=== PATIENT | female | born 1985 | race Caucasian/White ===

== ENCOUNTER 2019-12-28 14:30 | Emergency (ER) | payer MEDICAID ==
[2019-12-28] MEDS ORDERED: Cephalexin 500 MG Cap PO ONE (17:16)
--- NOTE | 2019-12-28 17:16 | EDM.PDOC ---
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 She states that a few days ago she shaved. Noticed a painful area of swelling yesterday. Since then it has gotten slightly larger. She denies any drainage from the area. Denies any fever, chills, nausea, or vomiting. - Related Data Allergies Allergy/AdvReac Type Severity Reaction Status Date / Time No Known Allergies Allergy Verified 12/28/19 17:19 Home Meds: Home Meds cephALEXin [Keflex] 500 mg PO Q6H #20 cap 12/28/19 [Rx] ED ROS GENERAL - Review of Systems Review Of Systems: Comprehensive ROS is negative, except as noted in HPI. ED EXAM, SKIN/RASH Exam: See Below Exam Limited By: No Limitations General Appearance: Alert, WD/WN, No Apparent Distress Respiratory/Chest: No Respiratory Distress, Lungs Clear, Normal Breath Sounds, No Accessory Muscle Use, Chest Non-Tender Cardiovascular: Normal Peripheral Pulses, Regular Rate, Rhythm, No Edema, No Gallop, No JVD, No Murmur, No Rub (Female) Exam: Other (1.5 cm area of erythema and induration to the left posterior labium majora. Area is firm and does not appear to be fluid-filled.) Neurological: Alert, Oriented, CN II-XII Intact, Normal Cognition, Normal Gait, Normal Reflexes, No Motor/Sensory Deficits Psychiatric: Normal Affect, Normal Mood Course - Vital Signs Last Recorded V/S: Last Vital Signs Temp 97.7 F 12/28/19 16:00 Pulse 100 12/28/19 16:00 Resp 16 12/28/19 16:00 BP 137/97 H 12/28/19 16:00 Pulse Ox 99 12/28/19 16:00 - Orders/Labs/Meds Meds: Medications Discontinued Medications Generic Name Dose Route Start Last Admin Trade Name Freq PRN Reason Stop Dose Admin Cephalexin 500 mg 12/28/19 17:16 12/28/19 17:34 Keflex PO 12/28/19 17:17 500 mg ONETIME ONE Administration - Re-Assessments/Exams Free Text/Narrative Re-Assessment/Exam: on exam, patient has a 1.5 cm area of erythema and induration to her left labia majora. Discussed with her that this is likely result of an ingrown hair as result of her shaving. Does not seem to be fluid-filled, therefore I&D would not be appropriate. We will start her on Keflex. Advised her that if it should worsen as opposed to improve, she should be reevaluated. Discharge instructions as documented. Departure - Departure Time of Disposition: 17:13 Disposition: Home, Self-Care 01 Condition: Good Clinical Impression: Ingrown hair - Discharge Information *PRESCRIPTION DRUG MONITORING PROGRAM REVIEWED*: No *COPY OF PRESCRIPTION DRUG MONITORING REPORT IN PATIENT BRYON: No Prescriptions: cephALEXin [Keflex] 500 mg PO Q6H #20 cap Instructions: Ingrown Hair Referrals: PCP,None [Primary Care Provider] - Forms: ED Department Discharge Additional Instructions: You were seen in the emergency department today for a painful, swollen area to your left labia. As we discussed, this is likely an ingrown hair. Started on Keflex which is an antibiotic. Take this medication as prescribed. You may use [id number] Tylenol or ibuprofen as needed for pain. You may continue to take warm baths to attempt to draw the infection out. If you find that it is worsening after 24 hours, would recommend that she have it reevaluated. Return to the ER as needed. Sepsis Event Note (ED) - Evaluation Sepsis Screening Result: No Definite Risk - Focused Exam Vital Signs: Vital Signs Temp Pulse Resp BP Pulse Ox 12/28/19 16:00 97.7 F 100 16 137/97 H 99
== END 2019-12-28 17:37 | disposition home or self-care (01) ==
LOC: JD.ED 14:30
DX: L73.1 Pseudofolliculitis barbae (principal)
CPT/HCPCS: 99283; A9270

== ENCOUNTER 2020-02-05 17:58 | Emergency (ER) | payer MEDICAID ==
[2020-02-05] MEDS ORDERED: Ondansetron 4 MG/2 ML SDV IVPUSH ONE (18:38)
[2020-02-05] MEDS ORDERED: HYDROmorphone 0.5 MG/0.5 ML Syringe IVPUSH ONE (18:38)
[2020-02-05] MEDS ORDERED: Sodium Chloride 0.9% 10 ML Syringe FLUSH PRN (18:38)
[2020-02-05] MEDS ORDERED: Sodium Chloride 0.9% 1,000 ML IV SCH (18:45)
--- NOTE | 2020-02-05 18:55 | EDM.PDOC ---
ED HPI GENERAL MEDICAL PROBLEM - General Chief Complaint: Abdominal Pain Stated Complaint: FEVER AND LOW ABD PAIN Time Seen by Provider: 02/05/20 18:29 Source of Information: Reports: Patient History Limitations: Reports: No Limitations - History of Present Illness INITIAL COMMENTS - FREE TEXT/NARRATIVE: Patient is a 34-year-old female who presents to the emergency department with complaints of right lower quadrant abdominal pain and fever. She states that symptoms began approximately 2 days ago. Fever at home last evening was at 102.5. She states that she did not come to the ER because she was trying to wait it out, however the pain has been getting worse. 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 She states that she still has both ovaries and her utierus. She does still have her appendix. She has had no nausea, vomiting, or diarrhea, however she cannot recall when her last bowel movement was. She does have a history of chronic constipation. She denies the possibility of being as her boyfriend has had a vasectomy. Last menstrual period was in September, however her periods are irregular. Right Lower Abdominal Pain Score (Numeric/FACES): 10 - Related Data Allergies Allergy/AdvReac Type Severity Reaction Status Date / Time No Known Allergies Allergy Verified 02/05/20 18:29 Past Medical History - Past Health History Medical/Surgical History: Denies Medical/Surgical History - Past Surgical History HEENT Surgical History: Reports: Naso-Sinus Surgery Social & Family History - Tobacco Use Smoking Status *Q: Never Smoker - Caffeine Use Caffeine Use: Reports: Coffee, Energy Drinks, Soda, Tea - Recreational Drug Use Recreational Drug Use: No ED ROS GENERAL - Review of Systems Review Of Systems: See Below Constitutional: Reports: Fever, Decreased Appetite HEENT: Reports: No Symptoms Respiratory: Reports: No Symptoms. Denies: Shortness of Breath, Cough Cardiovascular: Reports: No Symptoms Endocrine: Reports: No Symptoms GI/Abdominal: Reports: Abdominal Pain (low abdomen, worse in RLQ), Constipation. Denies: Diarrhea, Nausea, Vomiting : Reports: No Symptoms Neurological: Reports: No Symptoms ED EXAM, GI/ABD - Physical Exam Exam: See Below General Appearance: Alert, Anxious, Mild Distress Respiratory/Chest: No Respiratory Distress, Lungs Clear, Normal Breath Sounds, No Accessory Muscle Use, Chest Non-Tender Cardiovascular: Normal Peripheral Pulses, Regular Rate, Rhythm, No Edema, No Gallop, No JVD, No Murmur, No Rub GI/Abdominal Exam: Normal Bowel Sounds, Guarding, Rebound (RLQ), Tender (RLQ). No: Rigid Neurological: Alert, Oriented, CN II-XII Intact, Normal Cognition, Normal Gait, Normal Reflexes, No Motor/Sensory Deficits Psychiatric: Normal Affect, Normal Mood Skin Exam: Warm, Dry, Intact, Normal Color, No Rash Course - Vital Signs Last Recorded V/S: Last Vital Signs Temp 98.9 F 02/05/20 18:24 Pulse 113 H 02/05/20 18:24 Resp 18 02/05/20 18:24 BP 129/78 02/05/20 18:24 Pulse Ox 100 02/05/20 18:24 - Orders/Labs/Meds Orders: Active Orders 24 hr Category Date Time Status Peripheral IV Care [RC] . DIRECTED Care 02/05/20 18:38 Active CULTURE BLOOD [BC] Stat Lab 02/05/20 18:55 Received CULTURE BLOOD [BC] Stat Lab 02/05/20 19:00 Received CULTURE URINE [RM] Stat Lab 02/05/20 20:56 Received Sodium Chloride 0.9% [Normal Saline] 1,000 ml Med 02/05/20 18:45 Active IV ASDIRECTED Sodium Chloride 0.9% [Saline Flush] Med 02/05/20 18:38 Active 10 ml FLUSH ASDIRECTED PRN Sodium Chloride 0.9% with KCl [Normal Saline with 40 Med 02/05/20 21:00 Active mEq KCl] 1,000 ml IV ASDIRECTED Blood Culture x2 Reflex Set [OM.PC] Stat Oth 02/05/20 18:37 Ordered Peripheral IV Insertion Adult [OM.PC] Stat Oth 02/05/20 18:31 Ordered Medication Orders Sodium Chloride (Normal Saline) 1,000 mls @ 150 mls/hr IV ASDIRECTED RADHA Last Admin: 02/05/20 18:59 Dose: 150 mls/hr Documented by: KAILEY Potassium Chloride/Sodium Chloride (Normal Saline With 40 Meq Kcl) 1,000 mls @ 200 mls/hr IV ASDIRECTED RADHA Last Admin: 02/05/20 21:19 Dose: 200 mls/hr Documented by: KAILEY Sodium Chloride (Saline Flush) 10 ml FLUSH ASDIRECTED PRN PRN Reason: Keep Vein Open Last Admin: 02/05/20 18:58 Dose: 10 ml Documented by: KAILEY Labs: Laboratory Tests 02/05/20 02/05/20 02/05/20 Range/Units 18:45 18:45 18:45 WBC 23.78 H (3.98-10.04) K/mm3 RBC 4.51 (3.98-5.22) M/mm3 Hgb 12.6 (11.2-15.7) gm/dl Hct 37.9 (34.1-44.9) % MCV 84.0 (79.4-94.8) fl MCH 27.9 (25.6-32.2) pg MCHC 33.2 (32.2-35.5) g/dl RDW Std Deviation 41.8 (36.4-46.3) fL Plt Count 355 (182-369) K/mm3 MPV 9.8 (9.4-12.3) fl Neut % (Auto) 80.9 H (34.0-71.1) % Lymph % (Auto) 12.1 L (19.3-51.7) % [place] % (Auto) 5.5 (4.7-12.5) % Eos % (Auto) 0.9 (0.7-5.8) Baso % (Auto) 0.2 (0.1-1.2) % Neut # (Auto) 19.25 H (1.56-6.13) K/mm3 Lymph # (Auto) 2.88 (1.18-3.74) K/mm3 [place] # (Auto) 1.30 H (0.24-0.36) K/mm3 Eos # (Auto) 0.21 (0.04-0.36) K/mm3 Baso # (Auto) 0.04 (0.01-0.08) K/mm3 Manual Slide Review Abnormal smear Sodium 132 L (136-145) mEq/L Potassium 3.1 L (3.5-5.1) mEq/L Chloride 99 (98-107) mEq/L Carbon Dioxide 22 (21-32) mEq/L Anion Gap 14.1 (5-15) BUN 3 L (7-18) mg/dL Creatinine 0.8 (0.55-1.02) mg/dL Est Cr Clr Drug Dosing 77.63 mL/min Estimated GFR (MDRD) > 60 (>60) mL/min BUN/Creatinine Ratio 3.8 L (14-18) Glucose 150 H (74-106) mg/dL Lactic Acid 2.2 H* (0.4-2.0) mmol/L Calcium 7.8 L (8.5-10.1) mg/dL Total Bilirubin 0.8 (0.2-1.0) mg/dL AST 98 H (15-37) U/L ALT 73 H (14-59) U/L Alkaline Phosphatase 87 (46-116) U/L C-Reactive Protein 22.4 H* (<1.0) mg/dL Total Protein 7.0 (6.4-8.2) g/dl Albumin 2.9 L (3.4-5.0) g/dl Globulin 4.1 gm/dL Albumin/Globulin Ratio 0.7 L (1-2) Lipase (73-393) U/L Urine Color (Yellow) Urine Appearance (Clear) Urine pH (5.0-8.0) Ur Specific [place] (1.005-1.030) Urine Protein (Negative) Urine Glucose (UA) (Negative) Urine Ketones (Negative) Urine Occult Blood (Negative) Urine Nitrite (Negative) Urine Bilirubin (Negative) Urine Urobilinogen (0.2-1.0) Ur Leukocyte Esterase (Negative) Urine RBC (0-5) /hpf Urine WBC (0-5) /hpf Ur Squamous Epith Cells (0-5) /hpf Urine Bacteria (FEW) /hpf Urine Mucus (FEW) /hpf Urine HCG, Qual (NEGATIVE) COVID-19 (VIOLETA) (NEGATIVE) 02/05/20 02/05/20 02/05/20 Range/Units 18:45 19:56 19:56 WBC (3.98-10.04) K/mm3 RBC (3.98-5.22) M/mm3 Hgb (11.2-15.7) gm/dl Hct (34.1-44.9) % MCV (79.4-94.8) fl MCH (25.6-32.2) pg MCHC (32.2-35.5) g/dl RDW Std Deviation (36.4-46.3) fL Plt Count (182-369) K/mm3 MPV (9.4-12.3) fl Neut % (Auto) (34.0-71.1) % Lymph % (Auto) (19.3-51.7) % [place] % (Auto) (4.7-12.5) % Eos % (Auto) (0.7-5.8) Baso % (Auto) (0.1-1.2) % Neut # (Auto) (1.56-6.13) K/mm3 Lymph # (Auto) (1.18-3.74) K/mm3 [place] # (Auto) (0.24-0.36) K/mm3 Eos # (Auto) (0.04-0.36) K/mm3 Baso # (Auto) (0.01-0.08) K/mm3 Manual Slide Review Sodium (136-145) mEq/L Potassium (3.5-5.1) mEq/L Chloride (98-107) mEq/L Carbon Dioxide (21-32) mEq/L Anion Gap (5-15) BUN (7-18) mg/dL Creatinine (0.55-1.02) mg/dL Est Cr Clr Drug Dosing mL/min Estimated GFR (MDRD) (>60) mL/min BUN/Creatinine Ratio (14-18) Glucose (74-106) mg/dL Lactic Acid (0.4-2.0) mmol/L Calcium (8.5-10.1) mg/dL Total Bilirubin (0.2-1.0) mg/dL AST (15-37) U/L ALT (14-59) U/L Alkaline Phosphatase (46-116) U/L C-Reactive Protein (<1.0) mg/dL Total Protein (6.4-8.2) g/dl Albumin (3.4-5.0) g/dl Globulin gm/dL Albumin/Globulin Ratio (1-2) Lipase 52 L (73-393) U/L Urine Color Yellow (Yellow) Urine Appearance Slt cloudy H (Clear) Urine pH 6.5 (5.0-8.0) Ur Specific [place] 1.015 (1.005-1.030) Urine Protein Negative (Negative) Urine Glucose (UA) Negative (Negative) Urine Ketones Negative (Negative) Urine Occult Blood Negative (Negative) Urine Nitrite Negative (Negative) Urine Bilirubin Negative (Negative) Urine Urobilinogen 1.0 (0.2-1.0) Ur Leukocyte Esterase 1+ H (Negative) Urine RBC Not seen (0-5) /hpf Urine WBC 0-5 (0-5) /hpf Ur Squamous Epith Cells 20-30 H (0-5) /hpf Urine Bacteria Moderate H (FEW) /hpf Urine Mucus Not seen (FEW) /hpf Urine HCG, Qual Negative (NEGATIVE) COVID-19 (VIOLETA) (NEGATIVE) 02/05/20 Range/Units Unknown WBC (3.98-10.04) K/mm3 RBC (3.98-5.22) M/mm3 Hgb (11.2-15.7) gm/dl Hct (34.1-44.9) % MCV (79.4-94.8) fl MCH (25.6-32.2) pg MCHC (32.2-35.5) g/dl RDW Std Deviation (36.4-46.3) fL Plt Count (182-369) K/mm3 MPV (9.4-12.3) fl Neut % (Auto) (34.0-71.1) % Lymph % (Auto) (19.3-51.7) % [place] % (Auto) (4.7-12.5) % Eos % (Auto) (0.7-5.8) Baso % (Auto) (0.1-1.2) % Neut # (Auto) (1.56-6.13) K/mm3 Lymph # (Auto) (1.18-3.74) K/mm3 [place] # (Auto) (0.24-0.36) K/mm3 Eos # (Auto) (0.04-0.36) K/mm3 Baso # (Auto) (0.01-0.08) K/mm3 Manual Slide Review Sodium (136-145) mEq/L Potassium (3.5-5.1) mEq/L Chloride (98-107) mEq/L Carbon Dioxide (21-32) mEq/L Anion Gap (5-15) BUN (7-18) mg/dL Creatinine (0.55-1.02) mg/dL Est Cr Clr Drug Dosing mL/min Estimated GFR (MDRD) (>60) mL/min BUN/Creatinine Ratio (14-18) Glucose (74-106) mg/dL Lactic Acid (0.4-2.0) mmol/L Calcium (8.5-10.1) mg/dL Total Bilirubin (0.2-1.0) mg/dL AST (15-37) U/L ALT (14-59) U/L Alkaline Phosphatase (46-116) U/L C-Reactive Protein (<1.0) mg/dL Total Protein (6.4-8.2) g/dl Albumin (3.4-5.0) g/dl Globulin gm/dL Albumin/Globulin Ratio (1-2) Lipase (73-393) U/L Urine Color (Yellow) Urine Appearance (Clear) Urine pH (5.0-8.0) Ur Specific [place] (1.005-1.030) Urine Protein (Negative) Urine Glucose (UA) (Negative) Urine Ketones (Negative) Urine Occult Blood (Negative) Urine Nitrite (Negative) Urine Bilirubin (Negative) Urine Urobilinogen (0.2-1.0) Ur Leukocyte Esterase (Negative) Urine RBC (0-5) /hpf Urine WBC (0-5) /hpf Ur Squamous Epith Cells (0-5) /hpf Urine Bacteria (FEW) /hpf Urine Mucus (FEW) /hpf Urine HCG, Qual (NEGATIVE) COVID-19 (VIOLETA) Negative (NEGATIVE) Meds: Medications Generic Name Dose Route Start Last Admin Trade Name Freq PRN Reason Stop Dose Admin Sodium Chloride 1,000 mls @ 150 mls/hr 02/05/20 18:45 02/05/20 18:59 Normal Saline IV 150 mls/hr ASDIRECTED RADHA Administration Potassium Chloride/Sodium Chloride 1,000 mls @ 200 mls/hr 02/05/20 21:00 02/05/20 21:19 Normal Saline With 40 Meq Kcl IV 200 mls/hr ASDIRECTED RADHA Administration Sodium Chloride 10 ml 02/05/20 18:38 02/05/20 18:58 Saline Flush FLUSH 10 ml ASDIRECTED PRN Administration Keep Vein Open Discontinued Medications Generic Name Dose Route Start Last Admin Trade Name Freq PRN Reason Stop Dose Admin Diatrizoate Meglum/Diatrizoate Sod 90 ml 02/05/20 19:41 02/05/20 20:05 Gastrografin 37% PO 08/20/20 19:42 90 ml ONETIME ONE Administration Hydromorphone HCl 0.5 mg 02/05/20 18:38 02/05/20 18:58 Dilaudid IVPUSH 02/05/20 18:39 0.5 mg ONETIME ONE Administration Piperacillin Sod/Tazobactam 100 mls @ 200 mls/hr 02/05/20 20:40 02/05/20 20:48 Sod 4.5 gm/ Sodium Chloride IV 02/05/20 21:09 200 mls/hr ONETIME ONE Administration Iopamidol 100 ml 02/05/20 19:41 02/05/20 20:05 Isovue-300 (61%) IVPUSH 02/05/20 19:42 100 ml ONETIME ONE Administration Ondansetron HCl 4 mg 02/05/20 18:38 02/05/20 18:58 Zofran IVPUSH 02/05/20 18:39 4 mg ONETIME ONE Administration Sodium Chloride 10 ml 02/05/20 19:41 02/05/20 20:05 Saline Flush FLUSH 02/05/20 19:42 10 ml ONETIME ONE Administration - Re-Assessments/Exams Free Text/Narrative Re-Assessment/Exam: She is a 34-year-old female who presents to the emergency department with complaints of lower abdominal pain, worse in the right lower quadrant for the last 2 days as well as fever. She does have rebound tenderness of the right lower quadrant. Assessment is concerning for possible appendicitis. I ordered CBC, CMP, lactic acid, CRP, blood cultures, urinalysis, CT scan of the abdomen pelvis with contrast. We will start IV fluids of NS at 150 mils per hour, Dilaudid and for pain and Zofran for nausea. 02/05/20 21:18 Hematology was significant for a WBC elevated at 23.78, sodium 132, potassium 3.1, lactic acid 2.2, calcium 7.8, AST 98, ALT 73, CRP 22.4. Urinalysis shows 1+ leukocyte esterase, 20-30 squamous epithelials, and moderate bacteria this is concerning for contamination versus infection. Urine has been sent for culture. test was negative. CT scan of the abdomen and pelvis shows a complicated abnormality within the left ovary. Questionable inflammatory change of this ovary. Difficult to exclude tubo-ovarian abscess if patient has infectious symptoms. This inflammatory change could also relate to early leakage of a cyst if no axis changes present. Patient's vital signs have remained stable, although she is mildly tachycardic. I have ordered Zosyn 4.5 g to be given now. Will change IV fluids to NS with 40 of KCl at 200 mils per hour. I have also ordered a rapid COVID screen. Unfortunately, our facility is on full diversion so patient will not be able to it be admitted here. I did call and speak with the on-call manager costing, Dr. Chahal, at [facility] in [place]. She has accepted the patient for transfer with a direct admission, pending COVID results. Once these results are available, we will contact [facility] to arrange for transport. 02/05/20 21:40. Patient's COVID screen was negative. She will be transported by ground ambulance. Departure - Departure Time of Disposition: 21:10 Disposition: DC/Tfer to [facility] 02 Condition: Good Clinical Impression: Tubo-ovarian abscess - Discharge Information Referrals: PCP,None [Primary Care Provider] - Forms: ED Department Discharge Sepsis Event Note (ED) - Evaluation Sepsis Screening Result: No Definite Risk - Focused Exam Vital Signs: Vital Signs Temp Pulse Resp BP Pulse Ox 02/05/20 18:24 98.9 F 113 H 18 129/78 100 - My Orders Last 24 Hours: My Active Orders 02/05/20 18:31 Peripheral IV Insertion Adult [OM.PC] Stat 02/05/20 18:37 Blood Culture x2 Reflex Set [OM.PC] Stat 02/05/20 18:38 Peripheral IV Care [RC] . DIRECTED Sodium Chloride 0.9% [Saline Flush] 10 ml FLUSH ASDIRECTED PRN 02/05/20 18:45 Sodium Chloride 0.9% [Normal Saline] 1,000 ml IV ASDIRECTED 02/05/20 18:55 CULTURE BLOOD [BC] Stat 02/05/20 19:00 CULTURE BLOOD [BC] Stat 02/05/20 20:56 CULTURE URINE [RM] Stat 02/05/20 21:00 Sodium Chloride 0.9% with KCl [Normal Saline with 40 mEq KCl] 1,000 ml IV ASDIRECTED - Assessment/Plan Last 24 Hours: My Active Orders 02/05/20 18:31 Peripheral IV Insertion Adult [OM.PC] Stat 02/05/20 18:37 Blood Culture x2 Reflex Set [OM.PC] Stat 02/05/20 18:38 Peripheral IV Care [RC] . DIRECTED Sodium Chloride 0.9% [Saline Flush] 10 ml FLUSH ASDIRECTED PRN 02/05/20 18:45 Sodium Chloride 0.9% [Normal Saline] 1,000 ml IV ASDIRECTED 02/05/20 18:55 CULTURE BLOOD [BC] Stat 02/05/20 19:00 CULTURE BLOOD [BC] Stat 02/05/20 20:56 CULTURE URINE [RM] Stat 02/05/20 21:00 Sodium Chloride 0.9% with KCl [Normal Saline with 40 mEq KCl] 1,000 ml IV ASDIRECTED
[2020-02-05] MEDS ORDERED: Diatrizoate Meglumine/Diatrizoate Sodium 37% 120 ML Bottle PO ONE (19:41)
[2020-02-05] MEDS ORDERED: Sodium Chloride 0.9% 10 ML Syringe FLUSH ONE (19:41)
[2020-02-05] MEDS ORDERED: Iopamidol 612 MG/ML 100 ML Bottle IVPUSH ONE (19:41)
--- NOTE | 2020-02-05 20:36 | CT ---
CT abdomen and pelvis Technique: Multiple axial sections were obtained from above the dome of the diaphragm inferiorly to the pubic symphysis. Intravenous and oral contrast was utilized. Delayed images were obtained through the bladder. Reconstructed coronal and sagittal images were obtained. Findings: Complicated abnormality is noted within the left ovary measuring 7.1 cm x 3.6 cm. There is slight inflammatory change which appears to extend off this ovary and superiorly. No other etiology for this inflammatory change is appreciated. Visualized lung bases show nothing acute. Liver shows fatty infiltration without focal abnormality. Spleen appear appears normal in size. Soft tissue nodule is noted medial to the spleen compatible with accessory splenic tissue. Adrenal glands show no nodule. Pancreas appears within normal limits. Aorta shows no aneurysm. No retroperitoneal adenopathy is seen. No pelvic mass or adenopathy is seen. Appendix is not seen. No free fluid is seen. No pelvic adenopathy is noted. Delayed images shows contrast within distal ureters as well as contrast within the bladder. Bone window settings were reviewed which shows no acute osseous finding. There is a mild anterior wedge deformity seen of L1 which is most likely old. Impression: 1. Complicated abnormality within the left ovary. Questionable inflammatory change off this ovary. Difficult to exclude tubo-ovarian abscess if patient has infectious symptoms. This inflammatory could change could also relate to early leakage of a cyst if no infectious change is present. 2. Other findings believed to be nonacute as noted above. Diagnostic code #3 This report was dictated in MDT
[2020-02-05] MEDS ORDERED: Piperacillin/Tazobactam 4.5 GM in Sodium Chloride 0.9% 100 ML IV ONE (20:40)
[2020-02-05] MEDS ORDERED: Sodium Chloride 0.9% with KCl 1,000 ML IV SCH (21:00)
== END 2020-02-05 21:40 ==
LOC: JD.ED 17:58
DX: N70.92 Oophoritis, unspecified (principal)
CPT/HCPCS: 36415; 74177; 80053; 81001; 81025; 83605; 83690; 85025; 86140; 87040; 87086; 87635; 96361; 96365; 96375; 99285; J1170; J2405; J2543; J3480; J7030; J7050; Q9963; Q9967; 99284; U0002